=== PATIENT | male | born 1980 | race Caucasian/White ===

== ENCOUNTER 2018-02-08 21:46 | Emergency (ER) | payer MEDICAID, SELFPAY ==
[2018-02-08 21:48] VITALS: BP 156/89; PULSE 96; RESP 24; TEMP 37; O2SAT 97; BMI 28.1
[2018-02-08] MEDS: LORazepam 2 MG/ML Syringe 1 MG IM (22:16)
[2018-02-08] MEDS: HYDROmorphone 1 MG/ML Syringe IM (22:16)
--- NOTE | 2018-02-08 22:30 | RAD_ITS ---
STUDY: X-RAY CHEST REASON FOR EXAM: Male, 37 years old. Left-sided pain TECHNIQUE: PA and lateral views of the chest. COMPARISON: None. FINDINGS: The lungs are clear and expanded. There is no demonstrated pleural abnormality. Normal size heart. Normal mediastinum and shavon. Normal visualized pulmonary arteries. Normal visualized aortic arch and descending thoracic aorta. There is a mild mid thoracic levoscoliosis. Normal visualized ribs, clavicles, and shoulders. There is no demonstrated abnormality of the visualized soft tissue structures of the upper abdomen. RAD/Chest PA and Lateral IMPRESSION: Mild mid thoracic levoscoliosis. No acute cardiopulmonary disease process is seen. Electronically Signed: Ruperto Baird MD at 23:32 EDT , Service support ,
--- NOTE | 2018-02-08 23:40 | CT_ITS ---
STUDY: CTA OF THE ABDOMINAL AORTA AND BILATERAL LOWER EXTREMITIES REASON FOR EXAM: Male, 37 years old. Left-sided chest pain RADIATION DOSAGE (If Supplied By Facility): CTDIvol = ( 13.56 ) mGy, DLP = ( 724.92 ) mGycm TECHNIQUE: Axial CT angiography multi-detector data acquisition was obtained from the to the following intravenous administration of 100 ml of Isovue 300 contrast. Axial images and MIP images were reconstructed from the axial data set. Post-processing of the angiographic images was performed, with multiplanar reformation and 3D reconstruction. Individualized dose optimization techniques were used for this CT. TECHNICAL QUALITY: Good COMPARISON: None. Descriptors of Narrowing: None (0%) Mild (< 50%) Moderate (50-70%) Severe (70-90%) Subtotal/Total Occlusion (90-100%) Non-Evaluable (technically non-diagnostic FINDINGS: The abdominal aorta is visualized is intact and shows no focal aneurysms or dissection. Normal takeoffs of the celiac axis, SMA, PILI and renal arteries are noted. The common iliac arteries are normal. The liver, gallbladder, spleen, pancreas, kidneys and both adrenals are normal. The stomach is normal. There is no bowel distention or free intraperitoneal air and no acute appendicitis or diverticulitis. The abdominal wall is intact. There is no retrocrural, retroperitoneal or mesenteric adenopathy. The bones and joints visualized are normal with no demonstration of any fractures. CT/CTA Abdomen W/WO Contrast IMPRESSION: The abdominal aorta and its branches down to the common iliac arteries are normal. No acute findings in the abdomen and upper pelvis. Specifically there are no contusions or lacerations involving any of the intra-abdominal organs. No bony fracture Electronically Signed: Brendon Corbett, at 1:41 EDT Tel , Service support ,
--- NOTE | 2018-02-08 23:40 | CT_ITS ---
STUDY: CTA CHEST REASON FOR EXAM: Male, 37 years old. Left-sided chest pain RADIATION DOSAGE (If Supplied By Facility): CTDIvol = ( 11.40 ) mGy, DLP = ( 5.70 ) mGycm TECHNIQUE: The examination was performed with the intravenous administration of 100 ml of Isovue 300 contrast material. Post-processing of the angiographic images was performed, with multiplanar reformation and 3D reconstruction. Individualized dose optimization techniques were used for this CT. COMPARISON: None. FINDINGS: : TRACHEA, THYROID, ESOPHAGUS: No tracheomalacia,stricture or wall thickening. Thyroid and esophagus are normal CARDIOVASCULAR SYSTEM:The thoracic aorta is normal with no aneurysm, dissection or developmental anomalies. The pulmonary trunk and the left and right pulmonary arteries and their lobar and segmental branches do not show any abnormal and persistent filling defects in them. There is therefore no evidence of pulmonary embolism. The heart is normal. There are no venous anomalies CORY AND LYMPH NODES: No hilar masses and no mediastinal, hilar, axillary or supraclavicular adenopathy LUNGS, LOW-ATTENUATION: Small blebs in the medial cord toward the left apex. No lung laceration LUNGS, HIGH ATTENUATION: No nodules/masses, ground glass opacities/consolidations or increased interstitial markings. No lung contusions LUNGS, MOSAIC/CRAZY PAVING: Not evident PLEURA AND CHEST WALL: No plural effusions, pneumothoraces,rib fractures or any osteolytic/osteoblastic changes . The soft tissue chest wall including the breasts are normal CT/CTA Chest W/WO Contrast IMPRESSION: Normal CTA chest examination, without a demonstrated pulmonary embolism or arterial dissection. No lacerations or contusions involving the lungs. Tiny blebs in the medial contour of the left apex. No rib fractures and no pneumothoraces Electronically Signed: Brendon Corbett, at 1:38 EDT Tel , Service support ,
[2018-02-08 23:45] VITALS: BP 133/70; PULSE 76; RESP 19; O2SAT 97
--- NOTE | 2018-02-08 23:45 | ED.VISSUMM ---
- ER Visit Summary Date of Service: 02/08/18 Chief Complaint: [Left chest pain] History of Present Illness: The patient is a 37 M presents to the emergency department with pain in his left chest. Patient states that he initially started experiencing pain about 5 days ago. Patient initially thought it was related to lifting weights. Patient also works in [employer]. The pain progressively worsened and has become more severe over the last 2 days. Patient saw a chiropractor today and was told he had some ribs out of place and had an adjustment but really did not receive much relief with that. Patient states this evening he coughed and felt a pop in his left chest and the pain is now excruciating and rates it a 9 out of 10. Patient is never had pain like this before. Patient denies recent travel or surgery. The pain is pleuritic and positional. [] Physical Examination: [HEENT-PERRLA, EOMI. Cranial nerves II through XII grossly intact. TMs clear. Mucous membranes moist. No adenopathy. Cardiovascular-regular rate and rhythm without murmur or ectopy Lungs-clear to auscultation, chest wall stable without crepitus or subcu emphysema. Patient has tenderness palpation over the left anterior and mid axillary chest wall and ribs. Abdomen-normoactive bowel sounds, soft. Patient has tenderness over the left upper quadrant with some guarding. There is no rebound, rigidity, or perineal signs. Extremities-intact ?4, normal range of motion, normal pulses, atraumatic] Test Results: [Chest x-ray obtained was normal.] CTA of the chest and abdomen ordered and results are pending Emergency Department Course and Treatment: [Patient will be given a prescription for Ames for pain]. I do not feel his pain is cardiac. I feel his pain is musculoskeletal in etiology. Treatment Plan: [If CTA of chest and abdomen are unremarkable patient will be given a prescription for Ames for pain and advised to follow-up with primary care physician automotive service professional for no doc.] Disposition: [Discharged home in stable condition] Impression: [Left chest pain-etiology uncertain] This note was generated with [employer] dictation software. It may contain incorrect words, spelling, and punctuation that were not noted in review of the chart prior to signing ED Disposition - Plan for ED Patient: Chief Complaint: Other, Pain/Inj Referrals: Care Physician,No Primary [Primary Care Provider] -
[2018-02-08] MEDS: HYDROmorphone 1 MG/ML Syringe IV (23:52)
[2018-02-09 00:15] LABS: Absolute Lymphocyte Count 1.25 X10^3/ul (0.83-4.51); Absolute Neutrophil Count 9.8 X10^3/uL (2.0-7.7); Basophil# 0.01 X10^3/uL; Basophil% 0.1 % (0-1); Eosinophil# 0.16 X10^3/uL; Eosinophils% 1.4 % (0-5); Hematocrit 40.2 % (40-54); Lymphocyte # 1.25 X10^3/ul (4.0); Lymphocyte % 10.6 % (19-41); Mean Corp Hgb Conc 34.8 g/gl (32-36); Mean Corpuscular Hgb 32.9 pg (27.0-32.0); Mean Corpuscular Volume 94.6 fL (80-94); Mean Platelet Vol. 10.7 fl (6.2-12.0); Monocyte# 0.53 X10^3/uL; Monocyte% 4.5 % (0-10); Neutrophil # 9.84 X10^3/uL (2.7-7.7); Neutrophil % 83.1 % (47-70); Platelet Count 172 K/mm3 (150-450); RBC Distribution Width SD 43.8 fl (35.1-43.9); Red Blood Count 4.25 M/mm3 (4.6-6.2); White Blood Count 11.8 K/mm3 (4.4-11.0)
--- NOTE | 2018-02-09 00:21 | ED.DEP ---
ED Disposition - Plan for ED Patient: Chief Complaint: Other, Pain/Inj Instructions: ED Strain Chest Wall Prescriptions: Hydrocodone/Acetaminophen [[place] 5-325 Tablet] 1 - 2 ea PO 4X/DAY PRN PRN 5 Days #20 tab PRN Reason: Pain Referrals: Care Physician,No Primary [Primary Care Provider] - Fast,Raven, DO [NON-STAFF] - 3-5 Days
[2018-02-09 00:22] LABS: POSITIVE COUNT NO; POSITIVE DIFFERENTIAL NO; POSITIVE MORPHOLOGY NO
--- NOTE | 2018-02-09 00:24 | DCINST.ED_ITS ---
ED Disposition - Plan for ED Patient: Chief Complaint: Other, Pain/Inj Instructions: ED Strain Chest Wall Prescriptions: Hydrocodone/Acetaminophen [[place] 5-325 Tablet] 1 - 2 ea PO 4X/DAY PRN PRN 5 Days #20 tab PRN Reason: Pain Referrals: Care Physician,No Primary [Primary Care Provider] - Fast,Raven, DO [NON-STAFF] - 3-5 Days
[2018-02-09 00:32] LABS: Anion Gap 6 (5-15); BUN 17 mg/dL (7-18); BUN/Creat Ratio 18.5 RATIO (10-20); Calcium,Total 8.7 mg/dL (8.5-10.1); Chloride 108 mmol/L (98-107); Creatinine, Serum 0.92 mg/dL (0.70-1.30); EST Glomerular Filtration Rate 99 mL/min (>60); Est Glom Filt Rate - Afr Amer 120 mL/min (>60); Estimated Creatinine Clearance 118.22 ml/min; Glucose 88 mg/dL (74-106); Potassium 4.2 mmol/L (3.5-5.1); Sodium Level 140 mmol/L (136-145)
[2018-02-09 02:09] VITALS: BP 121/86; PULSE 81; RESP 14; O2SAT 100
--- NOTE | 2018-02-09 02:19 | ED.RN ---
PT GIVEN WRITTEN AND VERBAL DISCHARGE INSTRUCTIONS AND HOME GOING PRESCRIPTIONS. PT EDUCATED NOT TO DRIVE AFTER HAVING NARCOTIC MEDICATION. PT AMBULATORY HOME WITH MOM. IV D/C AND COVERED WITH 2X2 GAUZE DRESSING AND PAPER TAPE. PT AMBULATORY HOME WITH MOTHER. TO FOLLOW UP WITH DR. BAILEY.
== END 2018-02-09 02:20 | disposition home or self-care (01) ==
PROVIDERS: Emergency Provider Emergency Medicine
DX: R07.9 Chest pain, unspecified (principal); Z72.0 Tobacco use
CPT/HCPCS: 71046; 71275; 74175; 80048; 85025; 99282; Q9967; A4216

== ENCOUNTER 2020-01-09 06:32 | Emergency (ER) | payer SELFPAY ==
[2020-01-09 06:32] VITALS: BP 141/83; PULSE 117; RESP 15; TEMP 37.7; O2SAT 99; BMI 27.8
--- NOTE | 2020-01-09 06:46 | CT_ITS ---
STUDY: CTA CHEST REASON FOR EXAM: Male, 39 years old. SOB, PLEURITIC PAIN, MID BACK PAIN, NO INJURY PER PATIENT RADIATION DOSAGE (If Supplied By Facility): CTDIvol = ( 21.43 ) mGy, DLP = ( 1465.83 ) mGycm TECHNIQUE: The examination was performed with the intravenous administration of IV 100mL Isovue-370. Post-processing of the angiographic images was performed, with multiplanar reformation and 3D reconstruction. Individualized dose optimization techniques were used for this CT. COMPARISON: None. FINDINGS: Normal enhancement of the main pulmonary artery and right and left pulmonary arteries. Normal enhancement of the bilateral peripheral pulmonary arteries. There is no demonstrated pulmonary embolism. Normal thoracic aorta and visualized great vessels. There is no demonstrated aortic dissection. Normal heart and pericardium. Normal mediastinum. Normal hilar regions. Normal visualized trachea and bronchi. The lungs are well expanded. Mild bilateral apical scarring. No noncalcified nodule or mass. Normal pleura. Normal chest wall structures. Normal osseous structures. Normal visualized upper abdomen. CT/CTA Chest W/WO Contrast IMPRESSION: Normal CTA chest examination, without a demonstrated pulmonary embolism or arterial dissection. Electronically Signed: Wolfgang Arreguin MD at 7:57 EDT Tel , Service support ,
--- NOTE | 2020-01-09 06:49 | ED.DCSUM_ITS ---
History of Present Illness Chief Complaint: Back Informant: Patient Onset: Weeks Context: Gradual Onset Timing: Continuous Current Severity: Moderate Maximum Severity: Severe Narrative: Patient is a healthy 39-year-old male with no significant medical history that presents to the emergency department with right-sided back pain that radiates into his right chest and abdomen. He states that he is been having symptoms for the past 9 or 10 days. He thought that it may have been from exertion. He states however the pain is gotten worse. He denies any fevers. He states he does feel short of breath. He has had a scant cough. He denies nausea or vomiting. The patient denies any history of IV drug abuse. He denies any weakness of his extremities. He states sometimes when he gets the pain, he will feel like he is panicking. He has been taking ibuprofen with little relief. Prior similar symptoms: No Recent Illness/Hospitalization: No Past Medical History - Allergies and Home Meds Allergies/Adverse Reactions: Allergies No Known Allergies Allergy (Verified 02/08/18 21:48) Primary Care Physician: Care Physician,No Primary [Primary Care Provider] - Prior records reviewed: Yes Past Medical History: None Surgical History: noncontributory Smoking Status: Current every day smoker Review of Systems General: Denies: Chills, Fever, Sweats Eyes: Denies: Visual changes - bilaterally, Diplopia ENT: Denies: Rhinorrhea, Sore throat Cardiovascular: Reports: Chest pain. Denies: Palpitations Respiratory: Reports: Dyspnea. Denies: Cough, Dyspnea on exertion Gastrointestinal: Denies: Abdominal pain, Nausea, Vomiting, Diarrhea, Melena, Hematochezia Genitourinary: Denies: Dysuria, Hematuria, Frequency Musculoskeletal: Reports: Back pain. Denies: Extremity Pain Skin: Denies: Rash, Wounds Neurological: Denies: Headache, Weakness, Numbness Physical Exam Vital Signs/Narrative: Vital Signs Temp Pulse Resp BP Pulse Ox 01/09/20 06:32 99.8 F H 117 H 15 141/83 H 99 Inital Vital Signs reviewed: Yes General: Well nourished, Well developed, No Acute Distress Head: Normocephalic, Atraumatic Eyes: Perrl, EOMI ENT: Moist mucous membranes, No rhinorrhea Neck: Supple, Nontender Cardiovascular: Regular rhythm, No murmurs, Tachycardia Respiratory: No distress, CTA bilaterally, Chest tenderness Abdomen: Soft, Nontender, Nondistended, Normal bowel sounds Back: Nontender, Normal Inspection Extremities: Nontender, No edema Skin: Normal color, No rash Neurological: Alert, Oriented x3, Cranial nerves II-XII grossly intact, Normal Strength, Normal Sensation Psychological: Normal affect, Normal Mood Diagnostic/Tx/Re-eval Clinical Impression(s) from Imaging Studies Chest CTA 01/09/20 06:46 IMPRESSION: Normal CTA chest examination, without a demonstrated pulmonary embolism or arterial dissection. Electronically Signed: Wolfgang Arreguin MD at 7:57 EDT Tel , Service support , Abdomen/Pelvis CT 01/09/20 07:14 IMPRESSION: Mild splenomegaly. Electronically Signed: Wolfgang Arreguin MD at 8:04 EDT Tel , Service support , Abnormal Lab Results 01/09/20 01/09/20 06:44 06:44 WBC 8.3 RBC 2.80 L Hgb 10.1 L Hct 30.0 L MCV 107.1 H MCH 36.1 H MCHC 33.7 RDW Std Deviation 57.5 H RDW Coeff of Emily 14.6 Plt Count 247 MPV 12.6 H Immature Gran % (Auto) 3.400 H Neut % (Auto) 55.3 Lymph % (Auto) 22.6 [place] % (Auto) 18.5 H Eos % (Auto) 0.1 Baso % (Auto) 0.1 Absolute Neuts (auto) 4.6 Absolute Lymphs (auto) 1.88 Nucleated RBC % 0 Differential Comment SCANNED Reactive Lymphocytes 1+ Sodium 134 L Potassium 3.4 L Chloride 100 Carbon Dioxide 26.0 Anion Gap 8 BUN 13 Creatinine 0.92 Estim Creat Clear Calc 119.49 Est GFR (MDRD) Af Amer 118 Est GFR (MDRD) Non-Af 97 BUN/Creatinine Ratio 14.1 Glucose 105 Calcium 8.7 Total Bilirubin 0.50 AST 97 H ALT 149 H Alkaline Phosphatase 288 H Total Protein 7.8 Albumin 3.2 Globulin 4.6 H Albumin/Globulin Ratio 0.7 L Lipase 189 - Medical Decision Making The patient presents with myalgias, back pain, and generalized malaise. There was a pleuritic component. Broad metabolic work-up was pursued. Labs do show a monocytic predominance. He is mild elevation of his liver functions, but no right upper quadrant pain. Lipase was negative. I did obtain a CTA which was unremarkable for acute process. CT of the abdomen does show mild splenomegaly. I do have some concern that this may be mono causing the patient symptoms. On reevaluation, he does have exudative tonsillitis. He is afebrile. Is not hypoxic. Is not tachycardic. I do feel that he is safe for outpatient therapy. He will be given prednisone, short course of analgesics and antispasmodics. He is comfortable with this plan of care and will be discharged home. Impression 1. Right flank pain 2. Mononucleosis ED Disposition - Plan for ED Patient: Disposition: Home or Assisted Living Instructions: ED Back Pain Acute or Chronic, ED Mononucleosis Prescriptions: Prednisone [Deltasone] 40 mg PO DAILY #10 tab Prescription Printed cycloBENZAPRine HCl [Flexeril] 10 mg PO TID PRN #20 tab PRN Reason: Muscle Spasm Prescription Printed Hydrocodone Bitart/Apap 5-325 [[place] 5MG-325MG] 1 tab PO Q6H PRN PRN 3 Days #10 tab PRN Reason: Pain Prescription Printed Referrals: Care Physician,No Primary [Primary Care Provider] -
[2020-01-09] MEDS: 0.9% Normal Saline 1,000 ML 1000 ML IV (07:00)
[2020-01-09 07:01] LABS: Absolute Lymphocyte Count 1.88 X10^3/uL (0.83-4.51); Absolute Neutrophil Count 4.6 X10^3/uL (2.0-7.7); Basophil# 0.01 X10^3/uL; Basophil% 0.1 % (0-1); Eosinophil# 0.01 X10^3/uL; Eosinophils% 0.1 % (0-5); Hemoglobin 10.1 g/dL (13.0-16.5); Lymphocyte # 1.88 X10^3/ul (4.0); Lymphocyte % 22.6 % (19-41); Mean Corp Hgb Conc 33.7 g/dL (32-36); Mean Corpuscular Hgb 36.1 pg (27.0-32.0); Mean Corpuscular Volume 107.1 fL (80-94); Mean Platelet Vol. 12.6 fl (6.2-12.0); Monocyte# 1.54 X10^3/uL; Monocyte% 18.5 % (0-10); NRBC Flagged by Analyzer 0 % (0-5); Neutrophil % 55.3 % (47-70); POSITIVE DIFFERENTIAL YES; POSITIVE MORPHOLOGY YES; Platelet Count 247 K/mm3 (150-450); RBC Distribution Width CV 14.6 % (11.6-14.6); RBC Distribution Width SD 57.5 fl (35.1-43.9); White Blood Count 8.3 K/mm3 (4.4-11.0)
[2020-01-09] MEDS: Ondansetron 4 MG/2 ML Vial IV (07:01)
[2020-01-09] MEDS: Morphine 4 MG/ML Syringe IV (07:01)
[2020-01-09] MEDS: Ketorolac 15 MG/ML Vial IV (07:04)
[2020-01-09 07:07] LABS: ALB/GLOB Ratio 0.7 RATIO (0.9-2.4); AST(SGOT) 97 U/L (15-37); Alanine Aminotransfer ALT/SGPT 149 U/L (16-61); Albumin, Serum 3.2 g/dL (3.2-5.0); Alkaline Phosphatase 288 U/L (45-117); Anion Gap 8 (5-15); BUN 13 mg/dL (7-18); BUN/Creat Ratio 14.1 RATIO (10-20); Calcium,Total 8.7 mg/dL (8.5-10.1); Chloride 100 mmol/L (98-107); Creatinine, Serum 0.92 mg/dL (0.70-1.30); EST Glomerular Filtration Rate 97 mL/min (>60); Est Glom Filt Rate - Afr Amer 118 mL/min (>60); Estimated Creatinine Clearance 119.49 ml/min; Globulin 4.6 g/dL (2.2-4.2); Glucose 105 mg/dL (74-106); Lipase 189 U/L (73-393); Potassium 3.4 mmol/L (3.5-5.1); Protein, Total 7.8 g/dL (6.4-8.2); Sodium Level 134 mmol/L (136-145)
[2020-01-09 07:11] LABS: Differential Indicated SCAN CRITERIA MET
--- NOTE | 2020-01-09 07:14 | CT_ITS ---
STUDY: CT ABDOMEN AND PELVIS WITH CONTRAST REASON FOR EXAM: Male, 39 years old. SOB, PLEURITIC PAIN, MID BACK PAIN, NO INJURY PER PATIENT RADIATION DOSAGE (If Supplied By Facility): CTDIvol = ( 21.43 ) mGy, DLP = ( 1465.83 ) mGycm TECHNIQUE: Transaxial images were obtained from the dome of the diaphragm to the symphysis pubis without oral contrast. IV 100mL Isovue-370 was administered. Sagittal and coronal images were reconstructed. Individualized dose optimization techniques were used for this CT. COMPARISON: None. FINDINGS: The visualized lung bases are unremarkable. The visualized portions of the heart are within normal limits. Normal liver. Normal gallbladder and extrahepatic biliary system. There is mild splenomegaly. Normal pancreas. Normal bilateral adrenal glands. Normal right kidney. Normal left kidney. Normal visualized stomach. Normal small intestine. Normal colon. The appendix is visualized and appears normal. Normal abdominal aorta. Normal inferior vena cava. Normal retroperitoneum. Normal urinary bladder. There is a small umbilical hernia containing fat. Normal osseous structures. CT/Abdomen/Pelvis W IV Cont ONLY IMPRESSION: Mild splenomegaly. Electronically Signed: Wolfgang Arreguin MD at 8:04 EDT Tel , Service support ,
[2020-01-09 07:26] LABS: Reactive Lymphocyte 1+
[2020-01-09 07:27] LABS: Differential Comment SCANNED
[2020-01-09 08:12] VITALS: BP 131/77; PULSE 85; RESP 18; TEMP 37.7; O2SAT 97
== END 2020-01-09 08:37 | disposition home or self-care (01) ==
PROVIDERS: Emergency Provider Emergency Medicine
DX: R10.9 Unspecified abdominal pain (principal); B27.90 Infectious mononucleosis, unspecified without complication; F17.200 Nicotine dependence, unspecified, uncomplicated
CPT/HCPCS: 71275; 74177; 80053; 83690; 85025; 96361; 96374; 96375; 99284; J7030; Q9967; A4216; J2405

== ENCOUNTER 2020-02-26 14:00 | Emergency (ER) | payer MEDICAID, SELFPAY ==
[2020-02-26] VITALS (7 sets, daily range): BP systolic 130–159; BP diastolic 67–78; PULSE 94–124; RESP 18–24; TEMP 37.3–37.7; O2SAT 94–100; BMI 28.6
--- NOTE | 2020-02-26 14:21 | NURSING ---
NO OLD EKGS
--- NOTE | 2020-02-26 14:58 | EKG12_ITS ---
Test Reason : CP Blood Pressure : / mmHG Vent. Rate : 124 BPM Atrial Rate : 124 BPM P-R Int : 126 ms QRS Dur : 090 ms QT Int : 338 ms P-R-T Axes : 016 025 045 degrees QTc Int : 485 ms Sinus tachycardia Nonspecific ST abnormality Abnormal ECG Confirmed by ALEAH PHOENIX MD ([id number]), editorial writer RONALD SALAZAR ([id number]) on 02/28/2020 3:19:32 PM Referred By: Confirmed By:ALEAH PHOENIX MD
--- NOTE | 2020-02-26 14:59 | CT_ITS ---
STUDY: CT ABDOMEN AND PELVIS WITH CONTRAST REASON FOR EXAM: Male, 39 years old. LUQ PAIN X3 WEEKS -- DX W/ MONO X4 WEEKS AGO RADIATION DOSAGE (If Supplied By Facility): CTDIvol = ( 13.35 ) mGy, DLP = ( 1030.70 ) mGycm TECHNIQUE: Transaxial images were obtained from the dome of the diaphragm to the symphysis pubis without oral contrast. IV 100mL Isovue-300 was administered. Sagittal and coronal images were reconstructed. Individualized dose optimization techniques were used for this CT. COMPARISON: 01/09/2020. FINDINGS: The visualized lung bases are unremarkable. The visualized portions of the heart are within normal limits. Normal liver. Normal gallbladder and extrahepatic biliary system. There is mild splenomegaly. Normal pancreas. Normal bilateral adrenal glands. Normal right kidney. Normal left kidney. Evaluation of the GI tract is limited by the absence of oral contrast. Normal visualized stomach. Normal small intestine. Normal colon. The appendix is visualized and appears normal. Normal abdominal aorta. Normal inferior vena cava. Normal retroperitoneum. Normal urinary bladder. Normal abdominal wall. Normal osseous structures. CT/Abdomen/Pelvis W IV Cont ONLY IMPRESSION: No change or acute abnormality. Electronically Signed: Layton Wisdom MD at 16:12 EDT , Service support ,
[2020-02-26 15:08] LABS: Basophil# 0.01 X10^3/uL; Hematocrit 13.8 % (40-54); Lymphocyte # 3.17 X10^3/ul (4.0); Mean Corp Hgb Conc 33.3 g/dL (32-36); Mean Platelet Vol. 14.4 fl (6.2-12.0); Monocyte# 6.19 X10^3/uL; NRBC Flagged by Analyzer 0.6 % (0-5); POSITIVE COUNT YES; POSITIVE DIFFERENTIAL YES; POSITIVE MORPHOLOGY YES; Platelet Count 141 K/mm3 (150-450); RBC Distribution Width CV 17.1 % (11.6-14.6); RBC Distribution Width SD 70.3 fl (35.1-43.9); Red Blood Count 1.21 M/mm3 (4.6-6.2); White Blood Count 10.6 K/mm3 (4.4-11.0)
[2020-02-26] MEDS: 0.9% Normal Saline 1,000 ML 1000 ML IV (15:10)
[2020-02-26] MEDS: fentaNYL 100 MCG/2 ML Ampul 50 MCG IV (15:10)
[2020-02-26 15:11] LABS: Differential Indicated SCAN CRITERIA MET; Hemoglobin 4.6 g/dL (13.0-16.5)
--- NOTE | 2020-02-26 15:15 | RAD_ITS ---
STUDY: X-RAY CHEST REASON FOR EXAM: Male, 39 years old. CHEST PAIN X 3 WEEKS, SOB W/ EXERTION, Dizziness, pale, DIAGNOSED WITH MONO 4 WEEKS AGO TECHNIQUE: Single AP portable view of the chest. COMPARISON: 02/08/18. FINDINGS: Right paratracheal soft tissue thickening is suggested which was not present previously. This could be adenopathy. Recommend contrast CT of the chest. The lungs are clear and expanded. There is no demonstrated pleural abnormality. Normal size heart. Normal shavon. Normal visualized pulmonary arteries. Normal visualized aortic arch and descending thoracic aorta. Normal visualized thoracic spine. Normal visualized ribs, clavicles, and shoulders. There is no demonstrated abnormality of the visualized soft tissue structures of the upper abdomen. RAD/Chest 1 View (Portable) IMPRESSION: Right paratracheal soft tissue thickening is suggested which was not present previously. This could be adenopathy. Recommend contrast CT of the chest. Electronically Signed: Layton Wisdom MD at 16:13 EDT , Service support ,
[2020-02-26 15:16] LABS: International Normalized Ratio 1.3; Partial Thromboplast Time 34.1 Seconds (24.1-36.2); Prothrombin Time (Protime)PT. 15.9 SECONDS (11.7-14.9)
[2020-02-26 15:21] LABS: AST(SGOT) 42 U/L (15-37); Alanine Aminotransfer ALT/SGPT 49 U/L (16-61); Alkaline Phosphatase 171 U/L (45-117); Anion Gap 10 (5-15); BUN 8 mg/dL (7-18); BUN/Creat Ratio 7.4 RATIO (10-20); Bilirubin, Direct 0.18 mg/dL (0.00-0.30); Calcium,Total 8.6 mg/dL (8.5-10.1); Chloride 108 mmol/L (98-107); Creatinine, Serum 1.08 mg/dL (0.70-1.30); EST Glomerular Filtration Rate 81 mL/min (>60); Est Glom Filt Rate - Afr Amer 98 mL/min (>60); Estimated Creatinine Clearance 101.79 ml/min; Globulin 3.7 g/dL (2.2-4.2); Glucose 122 mg/dL (74-106); Lipase 106 U/L (73-393); Potassium 3.3 mmol/L (3.5-5.1); Protein, Total 7.7 g/dL (6.4-8.2); Sodium Level 139 mmol/L (136-145)
[2020-02-26 15:30] LABS: Scan Smear per Review Criteria MANUAL DIFF
[2020-02-26 15:36] LABS: Blast 44 % (0-0); Lymphocyte 32 % (19-41); Metamyelocyte 2 % (0-1); Monocyte 11 % (0-10); Neutrophil-Band 3 % (0-5); Neutrophil-Segmented 8 % (47-70); Total Cells Counted 100 (MANUAL DIFF)
[2020-02-26 15:37] LABS: Hypochromasia 2+; Macrocytosis RARE; Platelet Estimate ADEQUATE (ADEQ)
[2020-02-26 15:38] LABS: Absolute Lymphocyte Count 3.39 X10^3/uL (0.83-4.51); Absolute Neutrophil Count 1.2 X10^3/uL (2.0-7.7)
[2020-02-26 15:49] LABS: Bacteria 0 SEEN /hpf (None Seen); Red Blood Cells-Urine 0 SEEN /hpf (0-5); Squamous Epithelial Cells - UA 0 SEEN /hpf (0-5); White Blood Cells 0 SEEN /hpf (0-5)
[2020-02-26 15:52] LABS: Color, Urine Yellow (Yellow); Glucose, Dipstick Normal (Normal); Ketone-Dipstick 5 mg/dl (Negative); Leukocyte Esterase-Dipstick 25 /ul (Negative); Nitrite-Dipstick Negative (Negative); Occult Blood-Urine Negative /ul (Negative); Protein-Dipstick 30 mg/dl (Negative); Urine Clarity Clear (Clear); Urine Urobilinogen 4 mg/dl (Normal)
[2020-02-26 15:54] LABS: Urine Bilirubin Dipstick 1 mg/dL (Negative)
[2020-02-26 15:59] LABS: Mucous, Urine 2+ /hpf (<or=2+)
[2020-02-26 16:08] LABS: Renal Epithelial Cells 0-5 SEEN /hpf (0-5)
--- NOTE | 2020-02-26 16:09 | NURSING ---
CALLED [facility] FOR TRANSFER
[2020-02-26 16:10] LABS: Hyaline Cast 0-5 SEEN /lpf (0-5)
--- NOTE | 2020-02-26 16:11 | NURSING ---
CALLED PHYSICANS FOR A HEADS UP ON THE TRANSFER
--- NOTE | 2020-02-26 16:13 | ED.DCSUM_ITS ---
History of Present Illness Chief Complaint: Chest Pain Informant: Patient Onset: Weeks Narrative: Patient is a 39-year-old male with no significant past medical history presenting with 3 weeks of progressively worsening shortness of breath, pain is left upper quadrant and lightheadedness. 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 Patient also reports that he has chest pain but he points more to his left upper quadrant/epigastric region as the area of his pain. He notes the pain is worse with any type of movement or exertion. Is not affected by the position he sitting in. He states he has no exercise tolerance at all anymore and cannot function. He does have a slight associated headache and some intermittent nausea. He denies any swelling of his legs. He notes he intermittently does have some difficulty urinating and dysuria. Patient was seen in the ER about a month ago when he says he was diagnosed with mono. Chart review shows the patient was not tested for mono but he did have mild splenomegaly on CT and a monocyte predominance so he was presumptively diag nosed with it. Patient denies any black or bloody stools. He denies any other complaints at this time. Past Medical History - Allergies and Home Meds Allergies/Adverse Reactions: Allergies No Known Allergies Allergy (Verified 02/26/20 14:07) Primary Care Physician: Care Physician,No Primary [Primary Care Provider] - Past Medical History: None Surgical History: noncontributory Smoking Status: Current every day smoker Review of Systems General: Reports: Chills, Malaise. Denies: Fever, Sweats Eyes: Denies: Visual changes - bilaterally, Diplopia ENT: Denies: Rhinorrhea, Sore throat Cardiovascular: Denies: Chest pain, Palpitations Respiratory: Reports: Dyspnea, Dyspnea on exertion. Denies: Cough Gastrointestinal: Reports: Abdominal pain, Nausea. Denies: Vomiting, Diarrhea, Constipation, Melena, Hematochezia Genitourinary: Denies: Dysuria, Hematuria, Frequency Musculoskeletal: Denies: Back pain, Extremity Pain Skin: Denies: Rash, Wounds Neurological: Reports: Weakness - Generalized. Denies: Headache, Numbness Physical Exam Vital Signs/Narrative: Vital Signs Temp Pulse Resp BP Pulse Ox 02/26/20 15:06 99.3 F H 99 18 143/72 H 96 02/26/20 15:02 104 H 18 143/72 H 95 02/26/20 14:06 100 F H 124 H 24 H 134/67 H 94 02/26/20 14:02 100 F H 124 H 24 H 134/67 H 94 Inital Vital Signs reviewed: Yes General: Well nourished, Well developed Head: Normocephalic, Atraumatic Eyes: Perrl, EOMI, Pale conjunctiva ENT: Moist mucous membranes, No rhinorrhea, TM's clear Neck: Supple, Nontender, No JVD. Negative for: No lymphadenopathy Cardiovascular: Regular rhythm, No murmurs, Tachycardia Respiratory: No distress, CTA bilaterally, Chest nontender. Negative for: Rales, Rhonchi, Wheezing, Chest tenderness Abdomen: Soft, Nondistended, Normal bowel sounds, Tender - Epigastric/left upper quadrant. Negative for: Hepatomegaly, Splenomegaly Back: Nontender, Normal Inspection. Negative for: CVA tenderness Extremities: Nontender, No edema Skin: Normal color, No rash, Pallor Neurological: Alert, Oriented x3, Cranial nerves II-XII grossly intact, Normal Strength, Normal Sensation Psychological: Normal affect, Normal Mood Diagnostic/Tx/Re-eval Chest X-Ray - ED: 1 View, Read by ED Physician, Read by Radiologist, - - New right paratracheal soft tissue thickening Clinical Impression(s) from Imaging Studies Abdomen/Pelvis CT 02/26/20 14:59 IMPRESSION: No change or acute abnormality. Electronically Signed: Layton Wisdom MD at 16:12 EDT , Service support , Chest X-Ray 02/26/20 15:15 IMPRESSION: Right paratracheal soft tissue thickening is suggested which was not present previously. This could be adenopathy. Recommend contrast CT of the chest. Electronically Signed: Layton Wisdom MD at 16:13 EDT , Service support , Laboratory Data 02/26/20 02/26/20 02/26/20 14:02 14:05 14:05 WBC 10.6 RBC 1.21 L Hgb 4.6 L* Hct 13.8 L MCV 114.0 H MCH 38.0 H MCHC 33.3 RDW Std Deviation 70.3 H RDW Coeff of Emily 17.1 H Plt Count 141 L MPV 14.4 H Immature Gran % (Auto) [employer] DEVELOPER Neut % (Auto) V[employer]UAL [employer] DEVELOPER Lymph % (Auto) V[employer]UAL [employer] DEVELOPER Amelia % (Auto) V[employer]UAL [employer] DEVELOPER Eos % (Auto) VISUAL [employer] DEVELOPER Baso % (Auto) V[employer]UAL [employer] DEVELOPER Absolute Neuts (auto) 1.2 L Absolute Lymphs (auto) 3.39 Total Counted 100 Neutrophils % (Manual) 8 L Band Neutrophils % 3 Lymphocytes % (Manual) 32 Monocytes % (Manual) 11 H Metamyelocytes % 2 H Blast Cells % 44 H* Nucleated RBC % 0.6 Diff Path Review May foll Platelet Estimate ADEQUATE Hypochromasia 2+ Macrocytosis RARE PT 15.9 H INR 1.3 APTT 34.1 Sodium Potassium Chloride Carbon Dioxide Anion Gap BUN Creatinine Estim Creat Clear Calc Est GFR (MDRD) Af Amer Est GFR (MDRD) Non-Af BUN/Creatinine Ratio Glucose Lactic Acid Calcium Total Bilirubin Direct Bilirubin AST ALT Alkaline Phosphatase Troponin I Total Protein Albumin Globulin Lipase Urine Color Urine Clarity Urine pH Ur Specific Ararat Urine Protein Urine Glucose (UA) Urine Ketones Urine Occult Blood Urine Nitrite Urine Bilirubin Urine Urobilinogen Ur Leukocyte Esterase Urine RBC Urine WBC Ur Squamous Epith Cells Ur Renal Epithelial Cell Urine Bacteria Hyaline Casts Urine Mucus COVID-19 (IDALIA) Monoscreen Negative Blood Type Antibody Screen Crossmatch 02/26/20 02/26/20 02/26/20 14:05 15:12 15:38 WBC RBC Hgb Hct MCV MCH MCHC RDW Std Deviation RDW Coeff of Emily Plt Count MPV Immature Gran % (Auto) Neut % (Auto) Lymph % (Auto) Amelia % (Auto) Eos % (Auto) Baso % (Auto) Absolute Neuts (auto) Absolute Lymphs (auto) Total Counted Neutrophils % (Manual) Band Neutrophils % Lymphocytes % (Manual) Monocytes % (Manual) Metamyelocytes % Blast Cells % Nucleated RBC % Diff Path Review Platelet Estimate Hypochromasia Macrocytosis PT INR APTT Sodium 139 Potassium 3.3 L Chloride 108 H Carbon Dioxide 21.0 Anion Gap 10 BUN 8 Creatinine 1.08 Estim Creat Clear Calc 101.79 Est GFR (MDRD) Af Amer 98 Est GFR (MDRD) Non-Af 81 BUN/Creatinine Ratio 7.4 L Glucose 122 H Lactic Acid 1.0 Calcium 8.6 Total Bilirubin 0.70 Direct Bilirubin 0.18 AST 42 H ALT 49 Alkaline Phosphatase 171 H Troponin I < 0.015 Total Protein 7.7 Albumin 4.0 Globulin 3.7 Lipase 106 Urine Color Urine Clarity Urine pH Ur Specific [place]arat Urine Protein Urine Glucose (UA) Urine Ketones Urine Occult Blood Urine Nitrite Urine Bilirubin Urine Urobilinogen Ur Leukocyte Esterase Urine RBC Urine WBC Ur Squamous Epith Cells Ur Renal Epithelial Cell Urine Bacteria Hyaline Casts Urine Mucus COVID-19 (IDALIA) Monoscreen Blood Type A NEGATIVE Antibody Screen NEGATIVE Crossmatch See Detail 02/26/20 02/26/20 15:40 15:48 WBC RBC Hgb Hct MCV MCH MCHC RDW Std Deviation RDW Coeff of Emily Plt Count MPV Immature Gran % (Auto) Neut % (Auto) Lymph % (Auto) Amelia % (Auto) Eos % (Auto) Baso % (Auto) Absolute Neuts (auto) Absolute Lymphs (auto) Total Counted Neutrophils % (Manual) Band Neutrophils % Lymphocytes % (Manual) Monocytes % (Manual) Metamyelocytes % Blast Cells % Nucleated RBC % Diff Path Review Platelet Estimate Hypochromasia Macrocytosis PT INR APTT Sodium Potassium Chloride Carbon Dioxide Anion Gap BUN Creatinine Estim Creat Clear Calc Est GFR (MDRD) Af Amer Est GFR (MDRD) Non-Af BUN/Creatinine Ratio Glucose Lactic Acid Calcium Total Bilirubin Direct Bilirubin AST ALT Alkaline Phosphatase Troponin I Total Protein Albumin Globulin Lipase Urine Color Yellow Urine Clarity Clear Urine pH 8.0 Ur Specific [place]arat 1.010 Urine Protein 30 H Urine Glucose (UA) Normal Urine Ketones 5 H Urine Occult Blood Negative Urine Nitrite Negative Urine Bilirubin 1 H Urine Urobilinogen 4 H Ur Leukocyte Esterase 25 H Urine RBC 0 SEEN Urine WBC 0 SEEN Ur Squamous Epith Cells 0 SEEN Ur Renal Epithelial Cell 0-5 SEEN Urine Bacteria 0 SEEN Hyaline Casts 0-5 SEEN Urine Mucus 2+ COVID-19 (IDALIA) Cancelled Monoscreen Blood Type Antibody Screen Crossmatch - Rhythm Strip Rhythm Strip: Sinus Tach Rate: 124 Ectopy: None - EKG Initial EKG Interpretation: Sinus Tachycardia, - - Sinus tachycardia at a rate of [address] segments - Medical Decision Making Is a 39-year-old male presenting with worsening fatigue and lightheadedness. Patient was diagnosed with mononucleosis about 3 weeks ago. Chart review shows he was seen in the ER 2 month ago at the beginning of December. At that time he was diagnosed with presumptive mononucleosis with splenomegaly and monocyte predominance. Patient states that over the past few weeks he had worsening pain in his left upper quadrant/left chest and decreased exercise tolerance. Patient arrives he is quite pale and tachycardic. His blood pressure is stable in the emergency room. He denies any obvious bleeding such as black or bloody stools. Patient's hemoglobin is found to be 4.7. He does not have a history of anemia and this is an acute anemia compared to his prior ER visit. In addition he has a44% blast cells which is concerning for an acute leukemia. His white blood cell count is normal. Given patient's significant pain in his left upper quadrant and presumed mono diagnosis I did order a CT for concern of significant splenomegaly possible bleed. Chest x-ray does show new right paratracheal soft tissue density which could be adenopathy. Monospot today is negative. Formal Monospot was not checked in his prior visit. Patient does not have any other significant abnormalities except for an elevated alkaline phosphatase of 171. Case is discussed with hospitalist who then discussed the case with Dr. Steinberg, oncology on-call. He recommended broad-spectrum antibiotics given the patient's temperature of 100 ?F on arrival as well as transfer to a larger facility that is capable of doing a bone marrow biopsy. Patient is started on blood transfusion and I discussed the case with Dr. Fowler, hospitalist at [facility]. Patient states he like to go to [facility] and is his closest transferring facility. Patient is accepted to the medical stepdown unit. Dr. Fowler is awar e of the abnormal chest x-ray need for CT for follow-up. We will start the patient on the first unit of blood but admitting physician is aware that he will need to order more blood at [facility]. Patient is agreeable this plan. He is counseled on his concerning diagnosis and understands the need for further evaluation and patient. He is stable at time of transportation. - Critical Care Time Critical care time (excluding procedures): 30-74 minutes, Discussing w/Patient &/or Family/Head Of Talent Management, Discussing w/Consultants, Arranging Admission or Transfer ED Disposition - Plan for ED Patient: Diagnosis: Symptomatic anemia, Elevated blast cells , Splenomegaly, Fever Referrals: Care Physician,No Primary [Primary Care Provider] -
[2020-02-26 16:28] LABS: Internal QC Validated? YES +Cl - CLEAR BKGD; Monotest Negative (Negative)
--- NOTE | 2020-02-26 16:28 | NURSING ---
CALLED PHYSICANS, ETA IS [address] DR LOPEZ
--- NOTE | 2020-02-26 16:34 | ED.RN ---
PER LAB, FIRST UNIT OF BLOOD SHOULD BE READY IN 15-20 MINUTES
--- NOTE | 2020-02-26 16:36 | NURSING ---
[facility] COMING FROM [place],
--- NOTE | 2020-02-26 16:56 | ED.RN ---
RAJESH REQUEST THAT THE PT BE TRANSPORTED IN [place]. AFTER TALKING WITH THE TRANSFER CENTER, OK TO TRANSPORT WITH [facility]
[2020-02-28 11:51] LABS: Pathologist Review Reviewed
== END 2020-02-26 17:35 | disposition short-term general hospital (02) ==
LOC: ED 15:46
PROVIDERS: Emergency Provider Emergency Medicine
DX: D64.9 Anemia, unspecified (principal); R50.9 Fever, unspecified; R16.1 Splenomegaly, not elsewhere classified; R42 Dizziness and giddiness; F17.200 Nicotine dependence, unspecified, uncomplicated; R06.02 Shortness of breath; R10.12 Left upper quadrant pain
CPT/HCPCS: 71045; 74177; 80048; 80076; 81001; 83605; 83690; 84484; 85025; 85610; 85730; 86308; 86850; 86900; 86901; 86920; 86922; 87635; 93005; 96361; 96365; 96366; 96367; 96375; 99285; G2023; J7040; P9016; Q9967; A4216; U0004